=== PATIENT | female | born 1995 ===

== ENCOUNTER 2017-03-23 00:45 | Inpatient (IN) | payer MEDICAID, OTHER ==
[2017-03-23] MEDS ORDERED: MEPIVACAINE HCL 1% MPF 30 ML SOL INFIL PRN (01:28)
[2017-03-23] MEDS ORDERED: METHYLERGONOVINE MALEATE 0.2 MG/ML SOL IM PRN (01:28)
[2017-03-23] MEDS ORDERED: CARBOPROST 250 MCG/ML SOL IM PRN (01:28)
[2017-03-23] MEDS ORDERED: OXYTOCIN 10000 MU/ML SOL IM PRN (01:28)
[2017-03-23] MEDS ORDERED: FENTANYL 100MCG/2ML SOL IV PRN (01:28)
[2017-03-23] MEDS ORDERED: SODIUM CHLORIDE 0.9% FLUSH 10 ML SOL IV PRN (01:28)
[2017-03-23] MEDS ORDERED: LACTATED RINGERS 1,000 ML IV PRN (01:28)
[2017-03-23] MEDS: SODIUM CHLORIDE 0.9% FLUSH 10 ML SOL IV SCH ×3 (01:30→19:19)
[2017-03-23] MEDS ORDERED: TEMAZEPAM 15MG 15 MG CAP PO PRN (12:17)
[2017-03-23] MEDS ORDERED: BISACODYL 10 MG SUP PR PRN (12:17)
[2017-03-23] MEDS ORDERED: FLEET ENEMA PR PRN (12:17)
[2017-03-23] MEDS ORDERED: METHYLERGONOVINE MALEATE 0.2 MG TAB PO PRN (12:17)
[2017-03-23] MEDS ORDERED: BENZOCAINE/MENTHOL 1 SPR TOP PRN (12:17)
[2017-03-23] MEDS ORDERED: APAP/HYDROCODONE 325/5 TAB PO PRN (12:17)
[2017-03-23] MEDS ORDERED: WITCH HAZEL 1 EA PAD TOP PRN (12:17)
[2017-03-23] MEDS: IBUPROFEN 600 MG TAB PO PRN (16:26)
[2017-03-23 20:45] VITALS: RESP 20
[2017-03-23] MEDS: DOCUSATE SODIUM 100 MG SGL PO SCH (21:05)
[2017-03-23 23:21] VITALS: O2SAT 97
[2017-03-24] MEDS: IBUPROFEN 600 MG TAB PO PRN ×2 (02:23→10:12)
[2017-03-24] MEDS: DOCUSATE SODIUM 100 MG SGL PO SCH (10:12)
[2017-03-24 10:14] LABS: ABO O
[2017-03-24 10:16] LABS: RH TYPE Negative
[2017-03-24 10:23] VITALS: BP 115/73; PULSE 79; TEMP 98
[2017-03-24] MEDS ORDERED: PNEUMOCOCCAL VACCINE 0.5 ML SOL IM ONE ×2 (11:34→12:39)
== END 2017-03-24 13:55 | disposition home or self-care (01) | DRG 560 ==
LOC: OB 00:45 → OBSVTOIN 00:45
PROVIDERS: ADMIT Family Medicine; ATTEND Family Medicine
PROC: 10E0XZZ Delivery of Products of Conception, External Approach (ICD-10-PCS; principal; 2017-03-23)
PROC: 0W8NXZZ Division of Female Perineum, External Approach (ICD-10-PCS; 2017-03-23)
DX: O76 Abnormality in fetal heart rate and rhythm complicating labor and delivery (principal); O69.81X0 Labor and delivery complicated by cord around neck, without compression, not applicable or unspecified; Z3A.39 39 weeks gestation of pregnancy; Z37.0 Single live birth
CPT/HCPCS: 36415; 59025; 84112; 85018; 86900; 86901; 90732; 99070; J0670; J2590; J3010; G0008

== ENCOUNTER 2017-07-07 05:09 | Emergency (ER) | payer OTHER ==
[2017-07-07 05:24] VITALS: BP 125/79; PULSE 100; RESP 16; TEMP 96.8; O2SAT 100
== END 2017-07-07 05:34 | disposition home or self-care (01) ==
LOC: ED 05:09
DX: S51.812A Laceration without foreign body of left forearm, initial encounter (principal); W45.0XXA Nail entering through skin, initial encounter
CPT/HCPCS: 99283

== ENCOUNTER 2018-05-11 05:39 | Emergency (ER) | payer OTHER ==
[2018-05-11 06:01] VITALS: TEMP 96.7; O2SAT 99
[2018-05-11 07:03] VITALS: BP 116/68; PULSE 70; RESP 18
== END 2018-05-11 06:50 | disposition home or self-care (01) ==
LOC: ED 05:39
DX: L24.3 Irritant contact dermatitis due to cosmetics (principal)
CPT/HCPCS: 99282

== ENCOUNTER 2018-07-22 11:49 | Emergency (ER) | payer OTHER ==
[2018-07-22] MEDS ORDERED: MORPHINE SULFATE 10 MG/ML SOL IM PRN (12:17)
[2018-07-22 12:29] LABS: BASOPHILS % (AUTO) 1 % (0-3); EOSINOPHILS % (AUTO) 3 % (0-9); HEMATOCRIT 44 % (35-47); HEMOGLOBIN 13.9 gm/dl (12.0-15.5); LYMPHOCYTES % (AUTO) 20.3 % (10-50); MEAN CORPUSCULAR HEMOGLOBIN 28.6 pg (27.0-32.0); MEAN CORPUSCULAR HGB CONC 31.6 gm/dl (32.0-36.0); MEAN CORPUSCULAR VOLUME 90 fL (81-99); MONOCYTES % (AUTO) 10.9 % (0-12); NEUTROPHILS % (AUTO) 64.9 % (37-80)
[2018-07-22 12:38] VITALS: RESP 20; TEMP 98.4
[2018-07-22] MEDS ORDERED: MORPHINE SULFATE 10 MG/ML SOL ONE (12:40)
[2018-07-22] MEDS ORDERED: KETOROLAC TROMETHAMINE 30 MG/ML SOL IM ONE (12:59)
[2018-07-22 13:07] LABS: APPEARANCE,URINE Clear; BILIRUBIN,URINE NEGATIVE (NEGATIVE); COLOR,URINE Yellow; GLUCOSE, URINE (UA) NEGATIVE (NEGATIVE); KETONES,URINE TRACE (NEGATIVE); LEUKOCYTE ESTERASE ,URINE NEGATIVE (NEGATIVE); NITRATE,URINE NEGATIVE (NEGATIVE); OCCULT BLOOD,URINE NEGATIVE (NEG-TRACE); UROBILINOGEN,URINE 0.2 (0.2-1.0 EU)
[2018-07-22] MEDS ORDERED: KETOROLAC TROMETHAMINE 30 MG/ML SOL ONE (13:07)
[2018-07-22] MEDS ORDERED: CYCLOBENZAPRINE 10 MG TAB PO ONE (13:16)
[2018-07-22 13:21] LABS: RBC,URINE NEG (0-3AV/HPF); WBC,URINE 0-1 (0-5AV/HPF)
[2018-07-22 13:22] LABS: BACTERIA RARE (< 1+); CRYSTALS NEGATIVE (0-3 AVE/HPF)
[2018-07-22 13:49] VITALS: BP 111/79; PULSE 86; O2SAT 98
== END 2018-07-22 13:43 | disposition home or self-care (01) | DRG 552 ==
LOC: ED 11:49
DX: M54.5 Low back pain (principal); V89.2XXD Person injured in unspecified motor-vehicle accident, traffic, subsequent encounter
CPT/HCPCS: 36415; 81001; 85025; 96372; 99282; 99283; J1885; J2270